=== PATIENT | male | born 1975 | race African-American/Black ===

== ENCOUNTER 2017-05-22 22:21 | Inpatient (IN) | payer OTHER, MEDICAID ==
[~2017-05-22] VITALS: Ht 172.7 cm; Wt 88.5 kg
[2017-05-22] MEDS ORDERED: ONDANSETRON HCL 4MG/2ML VIAL IV STA (23:00)
[2017-05-22] MEDS ORDERED: SODIUM CHLORIDE 0.9% 1,000 ML IV ONE (23:00)
[2017-05-22 23:25] LABS: CLARITY URINE CLOUDY (CLEAR); COLOR URINE DARK YELLOW (YELLOW); GLUCOSE URINE NEGATIVE (NEGATIVE); KETONES URINE 1+ (NEGATIVE); LEUKOCYTE ESTERASE URINE TRACE (NEGATIVE); NITRITE URINE NEGATIVE (NEGATIVE); OCCULT BLOOD URINE 1+ (NEGATIVE); PROTEIN URINE 2+ (NEGATIVE); SPECIFIC GRAVITY URINE 1.034 (1.005-1.030)
[2017-05-22 23:35] LABS: CHLORIDE 98 mEq/L (98-107)
[2017-05-22 23:36] LABS: BASOPHILS % 0.3 % (0.0-2.0); EOSINOPHILS % 0.1 % (0.0-5.0); HEMATOCRIT. 55.5 % (42.0-52.0); HEMOGLOBIN. 19.2 g/dL (14.0-18.0); LYMPHOCYTES % 7.6 % (20.0-50.0); MEAN CORPUSCULAR HEMOGLOBIN 28.9 pg (28.0-32.0); MEAN CORPUSCULAR VOLUME 83.4 fL (80.0-94.0); PLATELET 306 x1000/uL (130-400); RED BLOOD CELL COUNT 6.65 mill/uL (4.7-6.1); RED CELL DISTRIBUTION WIDTH 12.5 % (11.6-14.6)
[2017-05-22 23:44] LABS: CARBON DIOXIDE 20 mEq/L (21-32)
[2017-05-22 23:46] LABS: *AMPHETAMINES SCREEN URINE PRESUMTIVE POSITIVE (NEGATIVE); *BARBITURATES SCREEN URINE NEGATIVE (NEGATIVE); *BENZODIAZEPINES SCREEN URINE NEGATIVE (NEGATIVE); *COCAINE SCREEN URINE NEGATIVE (NEGATIVE); CANNABINOID URINE SCREEN PRESUMTIVE POSITIVE (NEGATIVE); METHADONE URINE SCREEN NEGATIVE (NEGATIVE); OPIATES URINE SCREEN NEGATIVE (NEGATIVE); PHENCYCLIDINE URINE SCREEN NEGATIVE (NEGATIVE)
[2017-05-22 23:52] LABS: INR 1.2; PROTHROMBIN TIME 12.6 sec (9.4-11.6)
[2017-05-23] VITALS (34 sets, daily range): BP systolic 93–200; BP diastolic 18–91
[2017-05-23] MEDS ORDERED: LORAZEPAM 1MG TABLET PO ONE (01:45)
[2017-05-23 02:04] LABS: BASOPHILS % 0.3 % (0.0-2.0); HEMATOCRIT. 50.8 % (42.0-52.0); HEMOGLOBIN. 17.3 g/dL (14.0-18.0); LYMPHOCYTES % 8.3 % (20.0-50.0); MEAN CORPUSCULAR VOLUME 82.2 fL (80.0-94.0); MEAN PLATELET VOLUME 8.9 fl (7.4-10.4); MONOCYTES % 9.1 % (2.0-8.0); NEUTROPHILS % 82.3 % (40.0-76.0); PLATELET 301 x1000/uL (130-400); RED BLOOD CELL COUNT 6.19 mill/uL (4.7-6.1); RED CELL DISTRIBUTION WIDTH 12.6 % (11.6-14.6)
[2017-05-23] MEDS ORDERED: SODIUM CHLORIDE 0.9% 1000ML BAG (SEPSIS BOLUS) IV NR (03:00)
[2017-05-23] MEDS ORDERED: LEVOFLOXACIN 750MG PREMIX 150 ML IV NR (03:00)
[2017-05-23] MEDS ORDERED: LORAZEPAM 2MG/ML CPJ IV ONE (05:30)
[2017-05-23] MEDS ORDERED: MIDAZOLAM HCL 2 MG/2 ML VIAL IV NR (05:30)
[2017-05-23] MEDS ORDERED: KCL 20MEQ/100ML PREMIX 100 ML IV NR (05:30)
[2017-05-23] MEDS ORDERED: VANCOMYCIN 1 G PREMIX 200 ML IV ONE (05:45)
[2017-05-23] MEDS ORDERED: CEFTRIAXONE SODIUM 1 G/VIAL IV ONE (05:45)
[2017-05-23 07:14] LABS: CREATINE KINASE 6680 IU/L (39-308)
[2017-05-23] MEDS ORDERED: IPRATROPIUM/ALBUTEROL 0.5-3(2.5)MG/3ML NEB INH PRN (10:00)
[2017-05-23] MEDS ORDERED: LORAZEPAM 2MG/ML CPJ IV PRN (10:00)
[2017-05-23] MEDS ORDERED: ONDANSETRON HCL 4MG/2ML VIAL IV PRN (10:00)
[2017-05-23] MEDS: DEXT 5%/0.9% NACL 1,000 ML IV SCH ×3 (10:41→22:43)
[2017-05-23 12:25] LABS: HEPATITIS B SURFACE ANTIGEN NEGATIVE
[2017-05-23 12:54] LABS: HEPATITIS B CORE AB IGM NEGATIVE
[2017-05-23 12:55] LABS: HEPATITIS A AB IGM NEGATIVE (NEGATIVE)
[2017-05-23 15:47] LABS: BASOPHILS % 0.3 % (0.0-2.0); EOSINOPHILS % 0.7 % (0.0-5.0); HEMATOCRIT. 43.6 % (42.0-52.0); HEMOGLOBIN. 14.8 g/dL (14.0-18.0); LYMPHOCYTES % 15.8 % (20.0-50.0); MEAN CORPUSCULAR HEMOGLOBIN 28.3 pg (28.0-32.0); MEAN CORPUSCULAR VOLUME 83.1 fL (80.0-94.0); MEAN PLATELET VOLUME 8.8 fl (7.4-10.4); MONOCYTES % 11.5 % (2.0-8.0); NEUTROPHILS % 71.7 % (40.0-76.0); PLATELET 255 x1000/uL (130-400); RED BLOOD CELL COUNT 5.25 mill/uL (4.7-6.1); RED CELL DISTRIBUTION WIDTH 12.7 % (11.6-14.6)
[2017-05-23 16:10] LABS: CARBON DIOXIDE 22 mEq/L (21-32); CHLORIDE 105 mEq/L (98-107); CREATINE KINASE MB FRACTION 19.4 ng/mL (0.5-3.6); TROPONIN I < 0.02 ng/mL (0.00-0.04)
[2017-05-23 16:22] LABS: CREATINE KINASE 5401 IU/L (39-308)
[2017-05-23] MEDS: ENOXAPARIN 30MG/0.3ML SYR SUBCUT SCH (21:13)
[2017-05-24] VITALS (12 sets, daily range): BP systolic 108–154; BP diastolic 42–97
[2017-05-24 00:25] LABS: CREATINE KINASE MB FRACTION 13.6 ng/mL (0.5-3.6); TROPONIN I < 0.02 ng/mL (0.00-0.04)
[2017-05-24 00:35] LABS: CREATINE KINASE 5457 IU/L (39-308)
[2017-05-24 05:55] LABS: BASOPHILS % 0.3 % (0.0-2.0); EOSINOPHILS % 1.4 % (0.0-5.0); HEMATOCRIT. 41.1 % (42.0-52.0); HEMOGLOBIN. 13.9 g/dL (14.0-18.0); LYMPHOCYTES % 31.2 % (20.0-50.0); MEAN CORPUSCULAR HEMOGLOBIN 28.6 pg (28.0-32.0); MEAN CORPUSCULAR VOLUME 84.6 fL (80.0-94.0); MEAN PLATELET VOLUME 8.9 fl (7.4-10.4); MONOCYTES % 10.7 % (2.0-8.0); NEUTROPHILS % 56.4 % (40.0-76.0); PLATELET 239 x1000/uL (130-400); RED BLOOD CELL COUNT 4.86 mill/uL (4.7-6.1); RED CELL DISTRIBUTION WIDTH 12.5 % (11.6-14.6)
[2017-05-24 06:51] LABS: CARBON DIOXIDE 26 mEq/L (21-32); CHLORIDE 106 mEq/L (98-107); LDL CHOLESTEROL 69 mg/dL (5-100)
[2017-05-24 07:00] LABS: HDL CHOLESTEROL 26 mg/dL (40-59)
[2017-05-24] MEDS: ENOXAPARIN 30MG/0.3ML SYR SUBCUT SCH (08:32)
[2017-05-24] MEDS ORDERED: CEFTRIAXONE 1 G PREMIX 50 ML IV SCH (09:00)
[2017-05-24] MEDS ORDERED: POTASSIUM CHLORIDE 20MEQ TABLET SR PO NR (11:45)
== END 2017-05-24 15:00 | disposition home or self-care (01) | DRG 917 ==
LOC: ER 22:21 → CVICU 05-23 05:40 → ENRESERV 05-23 07:02
PROVIDERS: ADMIT Internal Medicine; ATTEND Internal Medicine
DX: T43.621A Poisoning by amphetamines, accidental (unintentional), initial encounter (principal); G92 Toxic encephalopathy; N17.9 Acute kidney failure, unspecified; M62.82 Rhabdomyolysis; E87.1 Hypo-osmolality and hyponatremia; E11.9 Type 2 diabetes mellitus without complications; D72.820 Lymphocytosis (symptomatic); N39.0 Urinary tract infection, site not specified; E87.6 Hypokalemia; T40.7X1A Poisoning by cannabis (derivatives), accidental (unintentional), initial encounter; F39 Unspecified mood [affective] disorder; F17.210 Nicotine dependence, cigarettes, uncomplicated; R74.0 Nonspecific elevation of levels of transaminase and lactic acid dehydrogenase [LDH]; R45.1 Restlessness and agitation; F19.10 Other psychoactive substance abuse, uncomplicated; F32.9 Major depressive disorder, single episode, unspecified; Y92.89 Other specified places as the place of occurrence of the external cause; Z78.1 Physical restraint status
CPT/HCPCS: 36415; 70450; 71010; 74176; 76705; 76770; 80048; 80053; 80061; 80305; 81001; 82550; 82553; 82962; 83605; 83690; 83735; 84443; 84484; 85025; 85610; 86705; 86709; 86803; 87040; 87086; 87186; 87340; 93005; 93970; 96361; 96365; 96366; 96367; 96375; 97162; 99285; J0696; J1650; J1956; J2060; J2250; J2405; J3370; J3480; J7030; J7042; A4315

== ENCOUNTER 2018-04-19 09:38 | Emergency (ER) | payer OTHER, MEDICAID ==
[~2018-04-19] VITALS: Ht 172.7 cm; Wt 104.0 kg
[2018-04-19] MEDS ORDERED: AZITHROMYCIN 500 MG TABLET PO ONE (11:00)
[2018-04-19] MEDS ORDERED: IBUPROFEN 600MG TABLET PO ONE (11:00)
[2018-04-19] MEDS ORDERED: CEFTRIAXONE SODIUM 250 MG/VIAL IM ONE (11:00)
[2018-04-19 11:39] LABS: CLARITY URINE CLEAR (CLEAR); COLOR URINE YELLOW (YELLOW); KETONES URINE 1+ (NEGATIVE); LEUKOCYTE ESTERASE URINE NEGATIVE (NEGATIVE); NITRITE URINE NEGATIVE (NEGATIVE); OCCULT BLOOD URINE NEGATIVE (NEGATIVE); PH URINE 7.5 (4.5-8.0); PROTEIN URINE NEGATIVE (NEGATIVE); SPECIFIC GRAVITY URINE 1.027 (1.005-1.030)
[2018-04-19 12:14] VITALS: BP 129/72
== END 2018-04-19 12:25 | disposition home or self-care (01) ==
LOC: ER 11:52
DX: R10.9 Unspecified abdominal pain (principal); R30.0 Dysuria; A63.8 Other specified predominantly sexually transmitted diseases; F31.9 Bipolar disorder, unspecified; F20.9 Schizophrenia, unspecified; F41.9 Anxiety disorder, unspecified; F12.10 Cannabis abuse, uncomplicated; F17.200 Nicotine dependence, unspecified, uncomplicated; Z98.49 Cataract extraction status, unspecified eye
CPT/HCPCS: 81003; 96372; 99283; 99406; J0696